=== PATIENT | female | born 1990 | race Two or more races ===

== ENCOUNTER 2017-05-05 12:47 | Emergency (ER) | payer MEDICAID ==
[~2017-05-05] VITALS: Ht 167.6 cm; Wt 122.5 kg
[2017-05-05 12:59] VITALS: BP 128/86
== END 2017-05-05 13:56 | disposition home or self-care (01) ==
LOC: ER 12:49
DX: H66.91 Otitis media, unspecified, right ear (principal); H61.21 Impacted cerumen, right ear
CPT/HCPCS: 69209

== ENCOUNTER → 2023-09-25 17:07 | Emergency (ER) | payer SELFPAY ==
[~2023-09-25 17:07] MED LIST: ACET500T58 PO; AMOX875T4 PO
[2023-09-25 23:51] VITALS: BP 127/71; PULSE 72; RESP 18; TEMP 97.7; O2SAT 97
== END | disposition home or self-care (01) ==
LOC: ER 17:07
DX: S63.8X2A Sprain of other part of left wrist and hand, initial encounter (principal); H66.92 Otitis media, unspecified, left ear; Z79.899 Other long term (current) drug therapy; X50.3XXA Overexertion from repetitive movements, initial encounter; Y93.89 Activity, other specified; Y92.89 Other specified places as the place of occurrence of the external cause; Y99.8 Other external cause status
CPT/HCPCS: 29125